=== PATIENT | female | born 1980 | race Caucasian/White ===

== ENCOUNTER 2020-08-20 09:38 | Outpatient (REF) | payer MEDICAID, SELFPAY ==
[2020-08-20 11:51] LABS: MANUAL DIFF FLAG NO
[2020-08-20 11:58] LABS: Basophils Percent Auto 0.3 % (0-2); Eosinophils Absolute Auto 0.1 X10*3/uL (0.0-0.4); Eosinophils Percent Auto 1.1 % (0-4); Hematocrit 36.3 % (37-47); Hemoglobin 11.7 g/dl (12.0-16.0); Imm Gran Abs Auto 0.03 X10*3/uL (0.00-0.03); Imm Gran Pct Auto 0.4 % (0.0-0.4); Lymphocytes Absolute Auto 1.7 X10*3/uL (1.2-4.9); Lymphocytes Percent Auto 22.4 % (20-40); Mean Corpuscular HGB Conc 32.2 g/dl (31.0-35.0); Mean Corpuscular Hemoglobin 28.7 pg (27.0-33.0); Mean Corpuscular Volume 89.2 fL (80-98); Mean Platelet Volume 10.9 fL (9.4-12.3); Monocytes Absolute Auto 0.5 X10*3/uL (0.1-1.2); Neutrophils Absolute Auto 5.2 X10*3/uL (2.0-8.3); Neutrophils Percent Auto 68.8 % (45-73); Platelet Count 255 X10*3/uL (160-400); Red Blood Count 4.07 X10*6/uL (4.20-5.50); Red Cell Distribution Width 12.7 % (11.0-16.0); White Blood Count 7.6 X10*3/uL (4.8-10.8)
[2020-08-20 12:42] LABS: TSH reflex Free T4 1.03 mIU/mL (0.32-4.0)
[2020-08-22 00:27] LABS: C. trachomatis RNA TMA NOT DETECTED (NOT DETECTED); N. gonorrhoeae RNA TMA NOT DETECTED (NOT DETECTED)
== END 2020-08-20 09:39 | disposition home or self-care (01) ==
LOC: HO.LAB 09:38
PROVIDERS: PCP Nurse Practitioner Family; Visit Provider Obstetrics & Gynecology
DX: Z01.419 Encounter for gynecological examination (general) (routine) without abnormal findings (principal); N93.9 Abnormal uterine and vaginal bleeding, unspecified
CPT/HCPCS: 36415; 84443; 85025; 87491; 87591; 99202

== ENCOUNTER 2020-08-22 09:48 | Outpatient (REF) | payer MEDICAID, SELFPAY | END 2020-08-22 09:49 | disposition home or self-care (01) | LOC: HO.LAB 09:48 | PROVIDERS: Visit Provider Internal Medicine | DX: Z20.822 Contact with and (suspected) exposure to COVID-19 (principal) | CPT/HCPCS: 36415; C9803; U0003 ==

== ENCOUNTER 2020-09-03 11:02 | Outpatient (REF) | payer MEDICAID, SELFPAY ==
--- NOTE | 2020-09-03 11:08 | US_ITS ---
EXAMINATION: PELVIC ULTRASOUND CLINICAL INFORMATION: Abnormal bleeding COMPARISON: Previous pelvic ultrasound October [address] of the abdomen and pelvis December 2013 TECHNIQUE: Transabdominal and transvaginal pelvic ultrasound was performed. Transvaginal exam was performed for better visualization of the uterus and ovaries. FINDINGS: The uterus is anteverted and measures 7.6 x 6 x 8 cm in dimension. There is a large left fundal or upper uterine body/cornual fibroid. This measures 4.7 x 4.2 x 4.9 cm and is increased in size from 3.5 x 2.9 x 4.3 cm on October 2018 exam. There is a newly appreciated right posterior partially calcified uterine body fibroid measuring 2.3 x 2.1 x 2.4 cm. Endometrial thickness is normal measuring 1.2 cm. The cervix is normal. The ovaries are normal. The right ovary measures 3.2 x 2 x 2.8 cm and the left ovary measures 2.7 x 1.7 x 1.6 cm. There is no fluid in the pelvis. US/US pelvic complete IMPRESSION: Uterine fibroids, largest measuring 4.7 x 4.2 x 4.9 cm. Normal thickness endometrium. Normal-appearing ovaries.
--- NOTE | 2020-09-03 11:08 | US_ITS ---
EXAMINATION: PELVIC ULTRASOUND CLINICAL INFORMATION: Abnormal bleeding COMPARISON: Previous pelvic ultrasound October [address] of the abdomen and pelvis December 2013 TECHNIQUE: Transabdominal and transvaginal pelvic ultrasound was performed. Transvaginal exam was performed for better visualization of the uterus and ovaries. FINDINGS: The uterus is anteverted and measures 7.6 x 6 x 8 cm in dimension. There is a large left fundal or upper uterine body/cornual fibroid. This measures 4.7 x 4.2 x 4.9 cm and is increased in size from 3.5 x 2.9 x 4.3 cm on October 2018 exam. There is a newly appreciated right posterior partially calcified uterine body fibroid measuring 2.3 x 2.1 x 2.4 cm. Endometrial thickness is normal measuring 1.2 cm. The cervix is normal. The ovaries are normal. The right ovary measures 3.2 x 2 x 2.8 cm and the left ovary measures 2.7 x 1.7 x 1.6 cm. There is no fluid in the pelvis. US/US transvaginal IMPRESSION: Uterine fibroids, largest measuring 4.7 x 4.2 x 4.9 cm. Normal thickness endometrium. Normal-appearing ovaries.
== END 2020-09-03 11:03 | disposition home or self-care (01) ==
LOC: HO.US 11:02
PROVIDERS: Visit Provider Obstetrics & Gynecology
DX: N93.9 Abnormal uterine and vaginal bleeding, unspecified (principal)
CPT/HCPCS: 76830; 76856

== ENCOUNTER → 2020-09-17 15:41 | Outpatient (BNVA) | payer MEDICAID, SELFPAY | PROVIDERS: PCP Nurse Practitioner Family; Visit Provider Obstetrics & Gynecology ==

== ENCOUNTER → 2020-11-20 11:30 | Outpatient (BNVA) | payer MEDICAID, SELFPAY | PROVIDERS: PCP Nurse Practitioner Family; Visit Provider Obstetrics & Gynecology ==

== ENCOUNTER → 2020-12-11 10:49 | Outpatient (BNVA) | payer MEDICAID, SELFPAY | PROVIDERS: PCP Nurse Practitioner Family; Visit Provider Obstetrics & Gynecology | DX: N92.0 Excessive and frequent menstruation with regular cycle (principal) | CPT/HCPCS: 96372; 99211; J1050 ==

== ENCOUNTER → 2021-01-31 11:16 | Outpatient (BNVA) | payer MEDICAID, SELFPAY | PROVIDERS: Visit Provider Obstetrics & Gynecology ==

== ENCOUNTER → 2021-03-05 10:28 | Outpatient (BNVA) | payer MEDICAID, SELFPAY | PROVIDERS: Visit Provider Obstetrics & Gynecology | DX: N92.0 Excessive and frequent menstruation with regular cycle (principal) | CPT/HCPCS: 96372; 99211 ==

== ENCOUNTER → 2021-03-12 11:08 | Outpatient (BNVA) | payer MEDICAID, SELFPAY | PROVIDERS: Visit Provider Obstetrics & Gynecology ==

== ENCOUNTER → 2021-06-02 10:47 | Outpatient (BNVA) | payer MEDICAID, SELFPAY | PROVIDERS: Visit Provider Advanced Practice Midwife | DX: N92.0 Excessive and frequent menstruation with regular cycle (principal) | CPT/HCPCS: 96372; 99211 ==

== ENCOUNTER 2021-09-24 11:26 | Outpatient (REF) | payer MEDICAID, SELFPAY ==
[2021-09-24 17:17] LABS: CT PCR NOT DETECTED (Not Detect.); NG PCR NOT DETECTED (Not Detect.)
[2021-09-25 13:19] LABS: BV Int Neg Control Negative (Negative); BV Int Pos Control Positive (Positive)
[2021-09-30 09:06] LABS: HPV 16 RNA NOT DETECTED (NOT DETECTED); HPV mRNA E6/E7 rflx Detected (Not Detected)
== END 2021-09-24 11:27 | disposition home or self-care (01) ==
LOC: HO.LAB 11:26
PROVIDERS: Visit Provider Advanced Practice Midwife
DX: Z01.419 Encounter for gynecological examination (general) (routine) without abnormal findings (principal); Z11.51 Encounter for screening for human papillomavirus (HPV); N88.8 Other specified noninflammatory disorders of cervix uteri; Z20.2 Contact with and (suspected) exposure to infections with a predominantly sexual mode of transmission
CPT/HCPCS: 87480; 87491; 87510; 87591; 87624; 87625; 87660; 88142

== ENCOUNTER 2022-06-11 22:21 | Emergency (ER) | payer MEDICAID, SELFPAY ==
--- NOTE | 2022-06-11 | ECG_ITS ---
Test Reason : CHEST PAIN Blood Pressure : / mmHG Vent. Rate : 065 BPM Atrial Rate : 065 BPM P-R Int : 128 ms QRS Dur : 076 ms QT Int : 406 ms P-R-T Axes : 055 062 034 degrees QTc Int : 422 ms Normal sinus rhythm RSR' or QR pattern in V1 suggests right ventricular conduction delay Otherwise normal ECG When compared with ECG of 18-JUL-2018 17:26, No significant change was found Referred By: Generic ED Physician Electronically Signed By:JOHNNA BROWN MD
[2022-06-11 22:23] VITALS: BP 133/77; PULSE 73; RESP 18; TEMP 36.7; O2SAT 99; BMI 26.2
--- NOTE | 2022-06-12 04:37 | ED_ITS ---
HPI - Chest Pain General Chief Complaint: Chest Pain Stated Complaint: Chest Pain Time Seen by Provider: 06/12/22 04:27 Source: patient Mode of arrival: ambulatory Limitations: no limitations History of Present Illness HPI narrative: Patient has significant this factor for coronary artery disease nonsmoker no substance abuse gets Depo shot up comes here for more months of left-sided chest pain feel bruising inside the chest no shortness of breath no palpitation no radiation of the pain is constant for last 1 month no leg swelling or calf pain Related Data Home Medications Medication Instructions Recorded Confirmed bupropion HCl 150 mg tablet,12 hr 150 mg PO BEDTIME 08/20/20 09/24/21 sustained-release (Wellbutrin SR) gabapentin 100 mg capsule 100 mg PO DAILY 08/20/20 09/24/21 hydrocortisone 2.5 % topical cream 1 appl topical BID PRN 08/20/20 09/24/21 ibuprofen 600 mg tablet 600 mg PO TID 08/20/20 09/24/21 loratadine 10 mg capsule 10 mg PO DAILY 08/20/20 09/24/21 permethrin 5 % topical cream 1 appl topical Q14D 08/20/20 09/24/21 risperidone 1 mg tablet (Risperdal) 1 mg PO DAILY 08/20/20 09/24/21 terbinafine HCl 1 % topical spray 1 spray topical DAILY 08/20/20 (Lamisil (Aerosol)) medroxyprogesterone 150 mg/mL 150 mg IM [id number] 03/12/21 09/24/21 intramuscular suspension (Depo-Provera) Previous Rx's Medication Instructions Recorded medroxyprogesterone 150 mg/mL 150 mg IM [id number] #1 mL 11/20/20 intramuscular syringe medroxyprogesterone 150 mg/mL 150 mg IM [id number] 3 months #1 mL 05/27/21 intramuscular suspension metronidazole 500 mg tablet 500 mg PO BID 7 days #14 tabs 09/26/21 ibuprofen 600 mg tablet 600 mg PO Q6H PRN fever or pain 06/12/22 #30 tabs Allergies Allergy/AdvReac Type Severity Reaction Status Date / Time kiwi [KIWI] Allergy Unknown HIVES Verified 09/24/21 12:04 Review of Systems Review of Systems: Yes all other systems are reviewed and are negative PMFSH Past Medical History Medical History Anxiety Bipolar 1 disorder Hypermenorrhea Surgical History History of History of tubal ligation Family History Family History Maternal Aunt Breast cancer Social History Social History Alcohol intake: never Patient Tobacco Use Status: Former Tobacco user Advance Directives: No Advance Directives Information Provided: Yes Sexual orientation: Straight/Heterosexual Gender identity: Female Physical Exam Vital Signs: Vital Signs: Last Vital Signs Temp 98.1 F 06/11/22 22:23 Pulse 63 06/12/22 05:01 Resp 18 06/12/22 05:01 BP 132/74 06/12/22 05:01 Pulse Ox 100 06/12/22 05:01 O2 Del Method 06/12/22 05:01 BMI result Body Mass Index 26.2 Appearance: Alert. Oriented X3. No acute distress. ENT: Pharynx normal. Oral Mucosa moist Neck: Normal inspection. Neck supple. CVS: Normal heart rate and rhythm. Pulses normal. Respiratory: No respiratory distress. Equal air entry bilateral, no wheezing/rales/rhonchi Abdomen: Soft and nontender. Bowel sounds are present, no mass palpable, no CVA tenderness Skin: Skin warm and dry. Normal skin color. Normal skin turgor. Extremities: No lower extremity edema. No calf tenderness Neuro: Oriented X 3. No motor deficit. MDM - Chest Pain MDM Narrative Medical decision making narrative: Patient with heart score of 0 D-dimer negative for PE atypical chest pain likely musculoskeletal discharge patient home on ibuprofen Lab Data Attestation: I reviewed the patient's lab results. Result diagrams: 06/12/22 04:45 06/12/22 04:42 Labs: Lab Results 06/12/22 06/12/22 06/12/22 Range/Units 04:42 04:45 04:45 WBC 9.6 (4.8-10.8) X10*3/uL RBC 4.76 (4.20-5.50) X10*6/uL Hgb 13.3 (12.0-16.0) g/dl Hct 40.3 (37.0-47.0) % MCV 84.7 (80.0-98.0) fL MCH 27.9 (27.0-33.0) pg MCHC 33.0 (31.0-35.0) g/dl RDW 12.5 (11.0-16.0) % Plt Count 232 (160-400) X10*3/uL MPV 11.4 (9.4-12.3) fL Immature Gran % (Auto) 0.2 (0.0-0.4) % Neut % (Auto) 54.6 (45-73) % Lymph % (Auto) 35.9 (20-40) % [place] % (Auto) 7.4 (2-11) % Eos % (Auto) 1.4 (0-4) % Baso % (Auto) 0.5 (0-2) % Lymph # (Auto) 3.4 (1.2-4.9) X10*3/uL [place] # (Auto) 0.7 (0.1-1.2) X10*3/uL Eos # (Auto) 0.1 (0.0-0.4) X10*3/uL Baso # (Auto) 0.1 (0.0-0.2) X10*3/uL Abs Immat Gran (auto) 0.02 (0.00-0.03) X10*3/uL Absolute Neuts (auto) 5.2 (2.0-8.3) x10*3/uL Absolute Nucleated RBC 0.000 (0.0-0.012) X10*3/uL Nucleated RBC % (auto) 0.0 (0.0-0.2) /100WBC D-Dimer High Sensitivty NG/ML Sodium 140 (135-145) mmol/L Potassium 4.3 (3.3-5.1) mmol/L Chloride 103 (96-108) mmol/L Carbon Dioxide 26 (22-29) mmol/L Anion Gap 15 (12-20) BUN 13 (9-16) mg/dL Creatinine 0.75 (0.5-1.4) mg/dL Estim Creat Clear Calc 77.9 Estimated GFR > 60 Random Glucose 97 (60-115) mg/dL Calcium 10.3 H (8.4-10.2) mg/dL Total Bilirubin 0.4 (0.0-1.0) mg/dL AST 19 (5-31) U/L ALT 12 (0-31) U/L Alkaline Phosphatase 57 (39-117) U/L Troponin I High Sens < 3.5 (<3.5-17.0) ng/L Total Protein 8.0 (6.5-8.0) g/dL Albumin 4.5 (3.5-5.0) g/dL 06/12/22 Range/Units 04:45 WBC (4.8-10.8) X10*3/uL RBC (4.20-5.50) X10*6/uL Hgb (12.0-16.0) g/dl Hct (37.0-47.0) % MCV (80.0-98.0) fL MCH (27.0-33.0) pg MCHC (31.0-35.0) g/dl RDW (11.0-16.0) % Plt Count (160-400) X10*3/uL MPV (9.4-12.3) fL Immature Gran % (Auto) (0.0-0.4) % Neut % (Auto) (45-73) % Lymph % (Auto) (20-40) % [place] % (Auto) (2-11) % Eos % (Auto) (0-4) % Baso % (Auto) (0-2) % Lymph # (Auto) (1.2-4.9) X10*3/uL [place] # (Auto) (0.1-1.2) X10*3/uL Eos # (Auto) (0.0-0.4) X10*3/uL Baso # (Auto) (0.0-0.2) X10*3/uL Abs Immat Gran (auto) (0.00-0.03) X10*3/uL Absolute Neuts (auto) (2.0-8.3) x10*3/uL Absolute Nucleated RBC (0.0-0.012) X10*3/uL Nucleated RBC % (auto) (0.0-0.2) /100WBC D-Dimer High Sensitivty < 150 NG/ML Sodium (135-145) mmol/L Potassium (3.3-5.1) mmol/L Chloride (96-108) mmol/L Carbon Dioxide (22-29) mmol/L Anion Gap (12-20) BUN (9-16) mg/dL Creatinine (0.5-1.4) mg/dL Estim Creat Clear Calc Estimated GFR Random Glucose (60-115) mg/dL Calcium (8.4-10.2) mg/dL Total Bilirubin (0.0-1.0) mg/dL AST (5-31) U/L ALT (0-31) U/L Alkaline Phosphatase (39-117) U/L Troponin I High Sens (<3.5-17.0) ng/L Total Protein (6.5-8.0) g/dL Albumin (3.5-5.0) g/dL ECG Data ECG #1: Attestation: I personally reviewed and interpreted this ECG as follows: Interpretation: Normal sinus rhythm heart rate 65 beats per minute normal interval normal axis no acute ST-T changes no acute ischemic Scores Heart Score History: -0- slightly suspicious ECG: -0- normal Age: -0- < or = 45 Risk factory: -0- no risk factors known Troponin: -0- < or = normal limit Score: 0 Risk: 1.7% Discharge Plan Discharge Clinical Impression: Atypical chest pain Patient Disposition: Home, Self-Care Instructions: Chest Wall Pain (ED) Additional Instructions: Take ibuprofen for pain as prescribed Follow-up with PCP if not better Prescriptions: New ibuprofen 600 mg tablet 600 mg PO Q6H PRN (Reason: fever or pain) Qty: 30 0RF No Action medroxyprogesterone 150 mg/mL suspension 150 mg IM [id number] 90 Days Qty: 1 0RF metronidazole 500 mg tablet 500 mg PO BID 7 Days Qty: 14 0RF Lamisil (Aerosol) 1 % aerosol,spray 1 spray topical DAILY ibuprofen 600 mg tablet 600 mg PO TID permethrin 5 % cream 1 appl topical Q14D Rx Instructions: apply second treatment 14 days after first treatment if live lice remain hydrocortisone 2.5 % cream 1 appl topical BID PRN gabapentin 100 mg capsule 100 mg PO DAILY loratadine 10 mg capsule 10 mg PO DAILY bupropion HCl [Wellbutrin SR] 150 mg tablet sustained-release 12 hr 150 mg PO BEDTIME risperidone [Risperdal] 1 mg tablet 1 mg PO DAILY medroxyprogesterone 150 mg/mL syringe 150 mg IM [id number] Qty: 1 3RF medroxyprogesterone [Depo-Provera] 150 mg/mL suspension 150 mg IM [id number]
--- OUTSIDE RECORDS SUMMARY | 2022-06-12 04:37 | XMS_ITS | Continuity of Care Document ---
:1980 Author Organization [facility] Address [address] [place] [phone] Care Team Providers Name Role Phone Alexx MENA, Jerry Perez Primary Care Physician Encounter [facility] Date(s): 02/07/21 - 03/09/21 [facility] [address] [place] [id number] Allergies, Adverse Reactions, Alerts Substance Reaction Severity Status NKA Active Medications Cipro 500 mg oral tablet 1 tablet, By Mouth, Every 12 hours, # 6 tablet, 0 Refills Start Date: 01/15/09 Stop Date: 01/18/09 Status: Orderedciprofloxacin 500 mg oral tablet 1 tablet = 500 mg, By Mouth, Every 12 hours, # 14 tablet, 0 Refills Start Date: 01/15/09 Stop Date: 01/22/09 Status: Ordered
[2022-06-12 04:48] LABS: MANUAL DIFF FLAG NO
[2022-06-12 04:49] LABS: Basophils Absolute Auto 0.1 X10*3/uL (0.0-0.2); Basophils Percent Auto 0.5 % (0-2); Eosinophils Absolute Auto 0.1 X10*3/uL (0.0-0.4); Eosinophils Percent Auto 1.4 % (0-4); Hematocrit 40.3 % (37.0-47.0); Hemoglobin 13.3 g/dl (12.0-16.0); Imm Gran Abs Auto 0.02 X10*3/uL (0.00-0.03); Imm Gran Pct Auto 0.2 % (0.0-0.4); Lymphocytes Absolute Auto 3.4 X10*3/uL (1.2-4.9); Lymphocytes Percent Auto 35.9 % (20-40); Mean Corpuscular Hemoglobin 27.9 pg (27.0-33.0); Mean Corpuscular Volume 84.7 fL (80.0-98.0); Mean Platelet Volume 11.4 fL (9.4-12.3); Monocytes Absolute Auto 0.7 X10*3/uL (0.1-1.2); Monocytes Percent Auto 7.4 % (2-11); Neutrophils Absolute Auto 5.2 x10*3/uL (2.0-8.3); Neutrophils Percent Auto 54.6 % (45-73); Platelet Count 232 X10*3/uL (160-400); Red Blood Count 4.76 X10*6/uL (4.20-5.50); Red Cell Distribution Width 12.5 % (11.0-16.0); White Blood Count 9.6 X10*3/uL (4.8-10.8)
[2022-06-12 05:01] VITALS: BP 132/74; PULSE 63; RESP 18; O2SAT 100
[2022-06-12 05:04] LABS: D Dimer High Sensitivity < 150 NG/ML
[2022-06-12 05:11] LABS: Troponin-I High Sensitivity < 3.5 ng/L (<3.5-17.0)
[2022-06-12 05:12] LABS: Alanine Aminotransferase 12 U/L (0-31); Albumin Level 4.5 g/dL (3.5-5.0); Alkaline Phosphatase 57 U/L (39-117); Anion Gap 15 (12-20); Aspartate Amino Transferase 19 U/L (5-31); Bilirubin Total 0.4 mg/dL (0.0-1.0); Blood Urea Nitrogen 13 mg/dL (9-16); Calcium 10.3 mg/dL (8.4-10.2); Carbon Dioxide 26 mmol/L (22-29); Chloride 103 mmol/L (96-108); Creatinine Clr Calc Pharmacy 77.9; Estimated Glomerular Filt Rate > 60; Glucose Random 97 mg/dL (60-115); Potassium 4.3 mmol/L (3.3-5.1); Sodium 140 mmol/L (135-145)
[2022-06-12] MEDS: Ibuprofen 600 MG TABLET PO (05:47)
== END 2022-06-12 05:49 | disposition home or self-care (01) ==
PROVIDERS: Emergency Provider Internal Medicine
DX: R07.89 Other chest pain (principal); Z79.899 Other long term (current) drug therapy; Z87.891 Personal history of nicotine dependence
CPT/HCPCS: 36415; 80053; 84484; 85025; 85379; 93005; 99283; 99285

== ENCOUNTER 2023-07-21 12:34 | Outpatient (REF) | payer MEDICAID, SELFPAY ==
--- NOTE | ~2023-07-21 | US_ITS ---
EXAMINATION: US VENOUS ULTRASOUND WITH DOPPLER LOWER EXTREMITY, LEFT CLINICAL INFORMATION: Left lower extremity pain and swelling COMPARISON: None available. TECHNIQUE: Ultrasound of the deep veins is performed from the hip to the calf with compression sonography and color and pulse Doppler assessment. Spectral analysis with color-flow imaging is performed. FINDINGS: There is normal venous compression and respiratory variation and augmented flow. The visualized common femoral vein, superficial femoral vein, profunda femoral vein, popliteal vein, and the trifurcation region shows no evidence of deep venous thrombosis. There is no significant popliteal fossa cyst. The contralateral right common femoral vein appears normal. If the patient's symptoms persist, followup ultrasound in 5 days 7 days might be of value to exclude proximal propagation from a non-visualized calf vein. US/US venous duplex LE LT IMPRESSION: No DVT demonstrated in the left lower extremity.
== END 2023-07-21 12:35 | disposition home or self-care (01) ==
LOC: HO.US 12:34
PROVIDERS: Visit Provider Emergency Medicine
DX: M79.605 Pain in left leg (principal); R60.0 Localized edema
CPT/HCPCS: 93971

== ENCOUNTER 2024-04-04 09:55 | Outpatient (REF) | payer MEDICAID, SELFPAY ==
[2024-04-04 11:34] LABS: Estimated Average Glucose 100 mg/dL; Hemoglobin A1c % 5.1 % (<6.0)
[2024-04-04 11:50] LABS: Alanine Aminotransferase 9 U/L (0-31); Alkaline Phosphatase 50 U/L (39-117); Anion Gap 10 (12-20); Aspartate Amino Transferase 15 U/L (5-31); Bilirubin Total 0.3 mg/dL (0.0-1.0); Blood Urea Nitrogen 11 mg/dL (9-16); Calcium 9.1 mg/dL (8.4-10.2); Carbon Dioxide 25 mmol/L (22-29); Chloride 108 mmol/L (96-108); Cholesterol 133 mg/dL (<200); Estimated Glomerular Filt Rate > 60; Glucose Random 93 mg/dL (60-115); HDL Cholesterol 38 mg/dL (>40); LDL Cholesterol Calculated 85 mg/dL (<100); Potassium 3.4 mmol/L (3.3-5.1); Sodium 140 mmol/L (135-145); Total Protein 7.3 g/dL (6.5-8.0); Triglycerides 50 mg/dL (<150)
[2024-04-04 13:07] LABS: CT PCR NOT DETECTED (Not Detect.); NG PCR NOT DETECTED (Not Detect.)
[2024-04-05 12:18] LABS: RPR Rapid Plasma Reagin NON-REACTIVE (NON-REACTIVE)
[2024-04-06 21:17] LABS: HIV RNA PCR Qn Copies Not Detected Copies/mL; HIV RNA PCR Qn Log Copies Not Detected Log cps/mL
== END 2024-04-04 09:56 | disposition home or self-care (01) ==
LOC: HO.HHCL 09:55
PROVIDERS: Visit Provider Nurse Practitioner Family
DX: Z00.00 Encounter for general adult medical examination without abnormal findings (principal)
CPT/HCPCS: 36415; 80053; 80061; 83036; 86592; 87491; 87536; 87591; 87900

== ENCOUNTER 2024-04-17 17:30 | Outpatient (REF) | payer MEDICAID, SELFPAY ==
[2024-04-20 07:38] LABS: HPV mRNA E6/E7 Not Detected (Not Detected)
== END 2024-04-17 17:31 | disposition home or self-care (01) ==
LOC: HO.HHCLNP 17:30
PROVIDERS: Visit Provider Advanced Practice Midwife
DX: Z12.4 Encounter for screening for malignant neoplasm of cervix (principal)
CPT/HCPCS: 36415; 87624; 88175

== ENCOUNTER 2024-04-24 12:44 | Outpatient (REF) | payer MEDICAID, SELFPAY ==
--- NOTE | ~2024-04-24 | US_ITS ---
EXAMINATION: US PELVIS CLINICAL INFORMATION: Fibroid. COMPARISON: Pelvic ultrasound September 03, 2020, November 22, 2018 LMP: Spotting 2 months ago. Depo shot TECHNIQUE: Ultrasound of the pelvis is performed using both transabdominal and transvaginal transducers along with Doppler. Transvaginal imaging is performed due to inadequate visualization transabdominally. FINDINGS: Uterus: The uterus is anteverted and measures 9.4 x 5.4 x 5 cm. Total uterine volume 130 mL. There is a fibroid the left side of the fundus of the uterus measuring 3.5 x 2.9 x 4.3 cm. Fibroid measured 4.7 x 4.2 x 4.9 cm on pelvic ultrasound September 03, 2020. The double wall endometrial thickness is 9 mm. Adnexa: Both ovaries are visualized. There is normal color flow to the adnexa. There is no ovarian torsion. There is no pelvic ascites or fluid collection. Right ovary measures 4.4 x 2.5 x 3 cm. Volume 16.9 mL. Complex cyst measuring 1.8 x 1.5 x 1.9 cm. Left ovary measures 2.2 x 1.1 x 2.3 cm. Volume 3 mL US/US pelvic and transvaginal IMPRESSION: 1. Uterine fibroid. 2. Complex cyst right ovary. Electronically signed by: Laureano Luong MD 04/24/2024 03:52 PM EDT
== END 2024-04-24 12:45 | disposition home or self-care (01) ==
LOC: HO.US 12:44
PROVIDERS: PCP Advanced Practice Midwife; Visit Provider Advanced Practice Midwife
DX: D21.9 Benign neoplasm of connective and other soft tissue, unspecified (principal)
CPT/HCPCS: 76830; 76856

== ENCOUNTER 2024-05-22 11:03 | Outpatient (REF) | payer MEDICAID, SELFPAY ==
--- NOTE | ~2024-05-22 | MM_ITS ---
EXAMINATION: MM SCREENING DIGITAL BREAST TOMOSYNTHESIS, BILATERAL CLINICAL INFORMATION: Screening. Asymptomatic. COMPARISON: Mammography: Comparison is made with available priors TECHNIQUE: Digital breast mammography with tomosynthesis is performed in both the craniocaudal and mediolateral oblique views along with computer-aided detection (CAD). FINDINGS: The breasts are extremely dense, which lowers the sensitivity of mammography (ACR BI-RADS breast composition Category d). There are no significant masses, abnormal calcifications, or other abnormalities. MM/MM tomosynthesis screening BI IMPRESSION: No mammographic evidence of malignancy. ASSESSMENT: BI-RADS BI-RADS 1 - Negative RECOMMENDATION: Routine annual mammography screening. 1 year F/U This examination should not preclude the clinical evaluation of a suspicious palpable abnormality. This patient's information was entered into a reminder system with a target due date for their next mammogram. Electronically signed by: Shameka Carroll DO 06/02/2024 10:48 AM EDT
== END 2024-05-22 11:04 | disposition home or self-care (01) ==
LOC: HO.MAMMO 11:03
PROVIDERS: PCP Nurse Practitioner Family; Visit Provider Nurse Practitioner Family
DX: Z12.31 Encounter for screening mammogram for malignant neoplasm of breast (principal)
CPT/HCPCS: 77063; 77067

== ENCOUNTER → 2024-05-22 11:30 | Outpatient (BNV) | payer MEDICAID, SELFPAY | PROVIDERS: PCP Nurse Practitioner Family; Visit Provider Internal Medicine | DX: Z12.31 Encounter for screening mammogram for malignant neoplasm of breast (principal) | CPT/HCPCS: 77063; 77067 ==

== ENCOUNTER 2024-07-10 00:21 | Emergency (ER) | payer MEDICAID, SELFPAY ==
--- NOTE | ~2024-07-10 | CT_ITS ---
EXAMINATION: CT HEAD WITHOUT CONTRAST CLINICAL INFORMATION: Headache and vomiting. COMPARISON: None available. TECHNIQUE: Contiguous axial imaging was performed from the skull base to vertex without intravenous administration of contrast. This CT examination was performed using dose optimization techniques as appropriate, variously including the following: *Automated exposure control *Adjustment of mA and/or kV according to patient size (this includes techniques or standardized protocols for targeted exams where dose is matched to indication/reason for exam; i.e. extremities or head) *Use of iterative reconstruction technique DLP: 612 mGy-cm FINDINGS: The lateral, third and fourth ventricles are normally outlined. The cortical sulci and basal cisterns are normally outlined as well. There is no acute territorial defect, hemorrhage or midline shift. The extra-axial spaces are unremarkable. Calvarium/scalp: Intact. Maxillofacial sinuses and mastoids: Clear as visualized. CT/CT head/brain wo IV con IMPRESSION: No acute intracranial process seen. Electronically signed by: Saeid Gallagher MD 07/10/2024 01:46 AM JEFF
[2024-07-10 00:33] VITALS: BP 132/83; BP 146/88; PULSE 75; PULSE 91; RESP 14; TEMP 36.7; O2SAT 100; BMI 22.3
--- NOTE | 2024-07-10 00:39 | ED_ITS ---
HPI - Headache General Chief Complaint: Headache Stated Complaint: headache and vomiting Time Seen by Provider: 07/10/24 00:26 Source: patient Mode of arrival: EMS Limitations: no limitations History of Present Illness ED Provider: HPI Narrative: Patient no significant past medical history apparently apparently noticed frontal headache followed by vomiting once no light sensitivity no head injury no upper respiratory symptoms patient never had headaches like this before Related Data Home Medications ?Medication ?Instructions ?Recorded ?Confirmed bupropion HCl 150 mg tablet,12 hr 150 mg PO BEDTIME 08/20/20 09/24/21 sustained-release (Wellbutrin SR) gabapentin 100 mg capsule 100 mg PO DAILY 08/20/20 09/24/21 hydrocortisone 2.5 % topical cream 1 appl topical BID PRN 08/20/20 09/24/21 ibuprofen 600 mg tablet 600 mg PO TID 08/20/20 09/24/21 loratadine 10 mg capsule 10 mg PO DAILY 08/20/20 09/24/21 permethrin 5 % topical cream 1 appl topical Q14D 08/20/20 09/24/21 risperidone 1 mg tablet (Risperdal) 1 mg PO DAILY 08/20/20 09/24/21 terbinafine HCl 1 % topical spray 1 spray topical DAILY 08/20/20 (Lamisil (Aerosol)) medroxyprogesterone 150 mg/mL 150 mg IM [id number] 03/12/21 09/24/21 intramuscular suspension (Depo-Provera) Previous Rx's ?Medication ?Instructions ?Recorded medroxyprogesterone 150 mg/mL 150 mg IM [id number] #1 mL 11/20/20 intramuscular syringe medroxyprogesterone 150 mg/mL 150 mg IM [id number] 3 months #1 mL 05/27/21 intramuscular suspension metronidazole 500 mg tablet 500 mg PO BID 7 days #14 tabs 09/26/21 ibuprofen 600 mg tablet 600 mg PO Q6H PRN fever or pain 06/12/22 #30 tabs Allergies Allergy/AdvReac Type Severity Reaction Status Date / Time kiwi [KIWI] Allergy Unknown HIVES Verified 07/10/24 00:35 Review of Systems Review of Systems: Yes all other systems are reviewed and are negative PMFSH Past Medical History Medical History Anxiety Hypermenorrhea Bipolar 1 disorder Surgical History History of tubal ligation History of Family History Family History Maternal Aunt Breast cancer Social History Social History Alcohol intake: never Patient Tobacco Use Status: Former Tobacco user Smoked in Last 30 Days: No Use of substances other than those prescribed or required for medical reasons: No Advance Directives: No Advance Directives Information Provided: Yes Do you have a plan to hurt others: No Plan Patient : No Sexual orientation: Straight/Heterosexual Gender identity: Female Physical Exam Vital Signs: Vital Signs: Last Vital Signs Temp 98.0 F 07/10/24 00:33 Pulse 75 07/10/24 00:33 Resp 14 07/10/24 00:33 BP 132/83 07/10/24 00:33 Pulse Ox 100 07/10/24 00:33 O2 Del Method Room Air 07/10/24 00:33 BMI result Body Mass Index 22.3 Appearance: Alert. Oriented X3. No acute distress. Eyes: PERRLA, No Nystagmus ENT: Pharynx normal. Oral Mucosa moist no temporal artery tenderness Neck: Normal inspection. Neck supple. CVS: Normal heart rate and rhythm. Pulses normal. Respiratory: No respiratory distress. Equal air entry bilateral, no wheezing/rales/rhonchi Abdomen: Soft and nontender. Bowel sounds are present, no mass palpable, no CVA tenderness Skin: Skin warm and dry. Normal skin color. Normal skin turgor. Extremities: No lower extremity edema. No calf tenderness Neuro: Oriented X 3. No motor deficit. No sensory deficit.No cerebellar signs , cranial nerves II-XII intact Medications Administered Discontinued Medications Generic Name Dose Route Start Last Admin Trade Name Freq PRN Reason Stop Dose Admin Acetaminophen/Butalbital/Caffeine 1 tab 07/10/24 01:10 07/10/24 01:30 Butalb/Acetamin/Caff 50/325/40 Tablet PO 07/10/24 01:11 1 tab ONCE ONE Administration Medical Decision Making Medical Decision Making MDM Narrative: Patient with acute onset of headache CT scan is negative likely has a atypical migraine felt much better after Fioricet Differential Diagnosis Differential Diagnoses: The differential diagnosis associated with the presentation includes SAH/SDH Independent Interpretation I performed an independent interpretation of an: CT Scan Interpretation: NAD Radiology Impression Discussion of test interpretation with radiology: I have reviewed the radiologist's reading. Discharge Plan Discharge Clinical Impression: Headache Patient Disposition: Home, Self-Care Instructions: General Headache (ED) Additional Instructions: Likely you had a atypical migraine as the cause of the headache Take Tylenol/Motrin for headaches as needed Prescriptions: No Action medroxyprogesterone 150 mg/mL suspension 150 mg IM [id number] 90 Days Qty: 1 0RF metronidazole 500 mg tablet 500 mg PO BID 7 Days Qty: 14 0RF ibuprofen 600 mg tablet 600 mg PO Q6H PRN (Reason: fever or pain) Qty: 30 0RF Lamisil (Aerosol) 1 % aerosol,spray 1 spray topical DAILY ibuprofen 600 mg tablet 600 mg PO TID permethrin 5 % cream 1 appl topical Q14D Rx Instructions: apply second treatment 14 days after first treatment if live lice remain hydrocortisone 2.5 % cream 1 appl topical BID PRN gabapentin 100 mg capsule 100 mg PO DAILY loratadine 10 mg capsule 10 mg PO DAILY bupropion HCl [Wellbutrin SR] 150 mg tablet sustained-release 12 hr 150 mg PO BEDTIME risperidone [Risperdal] 1 mg tablet 1 mg PO DAILY medroxyprogesterone 150 mg/mL syringe 150 mg IM [id number] Qty: 1 3RF medroxyprogesterone [Depo-Provera] 150 mg/mL suspension 150 mg IM [id number] Print Language: Ethiopian
[2024-07-10] MEDS: Butalb/Acetamin/Caff 50/325/40 TABLET 1 TAB PO (01:30)
[2024-07-10 02:00] VITALS: BP 110/72; PULSE 68; RESP 20; TEMP 36.9; O2SAT 100
[2024-07-10 02:08] VITALS: BP 110/72; PULSE 68; RESP 20; TEMP 36.9; O2SAT 100
== END 2024-07-10 02:09 | disposition home or self-care (01) ==
PROVIDERS: Emergency Provider Internal Medicine
DX: R51.9 Headache, unspecified (principal); R11.2 Nausea with vomiting, unspecified; Z79.899 Other long term (current) drug therapy
CPT/HCPCS: 70450; 99284

== ENCOUNTER 2024-07-21 13:23 | Outpatient (REF) | payer MEDICAID, SELFPAY | END 2024-07-21 13:24 | disposition home or self-care (01) | LOC: HO.US 13:23 | PROVIDERS: Visit Provider Advanced Practice Midwife | DX: N83.201 Unspecified ovarian cyst, right side (principal) | CPT/HCPCS: 76830; 76856 ==